=== PATIENT | male | born 1980 | race Caucasian/White ===

== ENCOUNTER 2020-06-16 03:13 | Inpatient (IN) ==
[2020-06-16] MEDS ORDERED: Nicotine PATCH 21 MG/24 HR PATCH TRANSDERM ONE (03:41)
[2020-06-16 06:06] LABS: Albumin 2.4 g/dL (3.2-5.2); Calcium 7.7 mg/dL (8.6-10.3); Potassium 3.6 mmol/L (3.5-5.0); Total Bilirubin 3.6 mg/dL (0.2-1.0)
[2020-06-16 06:07] LABS: ABS Basophils 0.1 10^3/ul (0-0.2); ABS Eosinophils 0.6 10^3/ul (0-0.6); ABS Lymphocytes 1.3 10^3/ul (1.0-4.8); ABS Monocytes 1.4 10^3/ul (0-0.8); Eosinophil % 3.1 %; Hematocrit 21 % (42-52); Hemoglobin 7.1 g/dL (14.0-18.0); Lymphocyte % 6.9 %; Mean Corpuscular HGB Conc 33 g/dL (31-36); Mean Corpuscular Hemoglobin 30 pg (27-31); Mean Corpuscular Volume 90 fL (80-94); Mean Platelet Volume 10.4 fL (7.4-10.4); Platelet Count 208 10^3/uL (150-450); Red Blood Count 2.38 10^6 /uL (4.18-5.48); Red Cell Distribution Width 19 % (10-15); White Blood Count 18.3 10^3/uL (3.5-10.8)
[2020-06-16 06:12] LABS: Albumin/Globulin Ratio 0.6 (1-3); BUN/Creatinine Ratio 7.1 (8-20); C Reactive Protein 35.59 mg/L (<8.01); EGFR African American 272.5 (>60); EGFR Non-African American 225.2 (>60); Globulin 3.7 g/dL (2-4); Total Protein 6.1 g/dL (6.4-8.9)
[2020-06-16] MEDS: Furosemide 40 mg/4 ml IV VIAL IV SCH (07:51)
[2020-06-16] MEDS: Nicotine PATCH 21 MG/24 HR PATCH TRANSDERM SCH (07:52)
[2020-06-16 08:44] LABS: INR 1.65 (0.82-1.09)
[2020-06-16 13:33] LABS: Body Fluid Source OTH
[2020-06-16 14:44] LABS: Body Fluid Mono 47 %; Body Fluid Other Cells 3
[2020-06-16] MEDS: cefTRIAXone 2 GM ADDV.VIAL 2 GM in NS 0.9% 100 ml BAG 100 ML IV SCH (20:32)
[2020-06-17 05:48] LABS: ABS Basophils 0.2 10^3/ul (0-0.2); ABS Eosinophils 0.5 10^3/ul (0-0.6); ABS Lymphocytes 1.2 10^3/ul (1.0-4.8); ABS Monocytes 1.2 10^3/ul (0-0.8); ABS Neutrophils 13.4 10^3/ul (1.5-7.7); Hematocrit 20 % (42-52); Hemoglobin 6.6 g/dL (14.0-18.0); Lymphocyte % 7.2 %; Mean Corpuscular HGB Conc 32 g/dL (31-36); Mean Corpuscular Hemoglobin 29 pg (27-31); Mean Corpuscular Volume 91 fL (80-94); Mean Platelet Volume 10.5 fL (7.4-10.4); Platelet Count 203 10^3/uL (150-450); Red Blood Count 2.23 10^6 /uL (4.18-5.48); Red Cell Distribution Width 18 % (10-15); White Blood Count 16.5 10^3/uL (3.5-10.8)
[2020-06-17 06:10] LABS: Calcium 7.7 mg/dL (8.6-10.3); EGFR African American 191.6 (>60); EGFR Non-African American 158.3 (>60); Potassium 3.5 mmol/L (3.5-5.0)
[2020-06-17] MEDS: Nicotine PATCH 21 MG/24 HR PATCH TRANSDERM SCH (10:18)
[2020-06-17] MEDS: Furosemide 40 mg/4 ml IV VIAL IV SCH (10:19)
[2020-06-17 13:41] LABS: Lactate Dehydrogenase, BF 81 U/L
[2020-06-17 13:57] LABS: Hematocrit 25 % (42-52)
[2020-06-17 15:47] LABS: Fluid Type, Protein, Total PARACENTESIS
[2020-06-17] MEDS: cefTRIAXone 2 GM ADDV.VIAL 2 GM in NS 0.9% 100 ml BAG 100 ML IV SCH (21:49)
[2020-06-18] MEDS: Senna TAB 8.6 mg TAB PO SCH ×2 (01:30→08:22)
[2020-06-18] MEDS: Docusate LIQ 100 MG/10 ML UDC PO SCH ×2 (01:31→08:23)
[2020-06-18] MEDS ORDERED: Senna/Docusate 8.6/50 mg (NF) TAB PO SCH (02:00)
[2020-06-18 04:43] LABS: Hematocrit 22 % (42-52); Mean Corpuscular HGB Conc 32 g/dL (31-36); Mean Corpuscular Hemoglobin 29 pg (27-31); Mean Corpuscular Volume 90 fL (80-94); Mean Platelet Volume 10.5 fL (7.4-10.4); Platelet Count 193 10^3/uL (150-450); Red Blood Count 2.42 10^6 /uL (4.18-5.48); Red Cell Distribution Width 18 % (10-15); White Blood Count 15.9 10^3/uL (3.5-10.8)
[2020-06-18 04:50] LABS: Calcium 7.7 mg/dL (8.6-10.3); Potassium 3.4 mmol/L (3.5-5.0)
[2020-06-18 04:55] LABS: BUN/Creatinine Ratio 7.7 (8-20)
[2020-06-18 05:14] LABS: ABS Basophils 0.6 10^3/ul (0-0.2); ABS Eosinophils 0.6 10^3/ul (0-0.6); ABS Lymphocytes 1.2 10^3/ul (1.0-4.8); ABS Monocytes 1.2 10^3/ul (0-0.8); ABS Neutrophils 12.3 10^3/ul (1.5-7.7); Eosinophil % 3.6 %; Lymphocyte % 7.5 %; Nucleated Red Blood Cells % 0.1
[2020-06-18] MEDS: Furosemide 40 mg/4 ml IV VIAL IV SCH (08:23)
[2020-06-18] MEDS: Nicotine PATCH 21 MG/24 HR PATCH TRANSDERM SCH (08:23)
[2020-06-18] MEDS ORDERED: Potassium Chlor 20 meq TAB.ER PO ONE (10:04)
[2020-06-18] MEDS ORDERED: Iohexol 300 (CONTRAST) 10 ML SDV IV ONE (10:21)
[2020-06-18] MEDS: cefTRIAXone 2 GM ADDV.VIAL 2 GM in NS 0.9% 100 ml BAG 100 ML IV SCH (20:39)
[2020-06-19 06:33] LABS: Hematocrit 22 % (42-52); Hemoglobin 7.3 g/dL (14.0-18.0); Mean Corpuscular HGB Conc 33 g/dL (31-36); Mean Corpuscular Hemoglobin 29 pg (27-31); Mean Corpuscular Volume 90 fL (80-94); Mean Platelet Volume 10.8 fL (7.4-10.4); Platelet Count 179 10^3/uL (150-450); Red Blood Count 2.48 10^6 /uL (4.18-5.48); Red Cell Distribution Width 18 % (10-15); White Blood Count 15.4 10^3/uL (3.5-10.8)
[2020-06-19 06:45] LABS: Albumin 2.4 g/dL (3.2-5.2); BUN/Creatinine Ratio 11.4 (8-20); Calcium 7.8 mg/dL (8.6-10.3); EGFR African American 258.3 (>60); EGFR Non-African American 213.4 (>60); Potassium 3.6 mmol/L (3.5-5.0); Total Protein 5.9 g/dL (6.4-8.9)
[2020-06-19 06:46] LABS: Albumin/Globulin Ratio 0.7 (1-3); Globulin 3.5 g/dL (2-4); Total Bilirubin 2.2 mg/dL (0.2-1.0)
[2020-06-19] MEDS: Docusate LIQ 100 MG/10 ML UDC PO SCH (10:47)
[2020-06-19] MEDS: Senna TAB 8.6 mg TAB PO SCH (10:47)
[2020-06-19] MEDS: Furosemide 40 mg/4 ml IV VIAL IV SCH (11:10)
[2020-06-19] MEDS: Nicotine PATCH 21 MG/24 HR PATCH TRANSDERM SCH (11:11)
[2020-06-19] MEDS ORDERED: Potassium Chlor 20 meq TAB.ER PO ONE (12:00)
[2020-06-19 19:03] LABS: Albumin, BF 0.6 g/dL; Fluid Type, Albumin PARACENTESIS
[2020-06-20] MEDS: Nicotine PATCH 21 MG/24 HR PATCH TRANSDERM SCH (08:48)
[2020-06-20] MEDS: Docusate LIQ 100 MG/10 ML UDC PO SCH (08:49)
[2020-06-20] MEDS: Senna TAB 8.6 mg TAB PO SCH (08:49)
[2020-06-20 09:07] LABS: Hematocrit 25 % (42-52); Hemoglobin 8.2 g/dL (14.0-18.0); Mean Corpuscular HGB Conc 33 g/dL (31-36); Mean Corpuscular Hemoglobin 30 pg (27-31); Mean Corpuscular Volume 90 fL (80-94); Mean Platelet Volume 10.4 fL (7.4-10.4); Platelet Count 186 10^3/uL (150-450); Red Blood Count 2.72 10^6 /uL (4.18-5.48); Red Cell Distribution Width 18 % (10-15); White Blood Count 17.3 10^3/uL (3.5-10.8)
[2020-06-20] MEDS ORDERED: Senna TAB 8.6 mg TAB PO PRN (11:07)
[2020-06-20] MEDS ORDERED: Magnesium Hydroxide LIQ 30 ML UDC PO PRN (11:07)
[2020-06-20 11:38] LABS: Anion Gap 7 mmol/L (2-11); CO2 Carbon Dioxide 23 mmol/L (22-32); Calcium 8.1 mg/dL (8.6-10.3); Chloride 104 mmol/L (101-111); Magnesium 1.8 mg/dL (1.9-2.7); Potassium 3.8 mmol/L (3.5-5.0); Sodium 134 mmol/L (135-145)
[2020-06-20 11:44] LABS: BUN/Creatinine Ratio 12.5 (8-20); Blood Urea Nitrogen 7 mg/dL (6-24); EGFR African American 195.5 (>60); EGFR Non-African American 161.6 (>60); Glucose 115 mg/dL (70-100)
[2020-06-20 11:58] LABS: Folate 11.68 ng/mL (>3.99)
[2020-06-20 11:59] LABS: Vitamin B12 727 pg/mL (180-914)
[2020-06-20 12:16] LABS: INR 1.72 (0.82-1.09)
[2020-06-20] MEDS ORDERED: Magnesium Sulfate IV 1GM/100ML 1 GM/100 ML BAG IV ONE (16:57)
[2020-06-20 18:40] LABS: Total Iron Binding Capacity 311 mcg/dL (250-450); Transferrin 222 mg/dL (203-362)
[2020-06-20 18:42] LABS: % Iron Saturation 6 % (15-55); Iron < 20 ug/dL (50-212); Unsaturated Iron Binding < 296 ug/dL
[2020-06-20 18:59] LABS: Ferritin 29.6 ng/mL (24-336)
[2020-06-21 06:23] LABS: Hematocrit 23 % (42-52); Hemoglobin 7.6 g/dL (14.0-18.0); Mean Corpuscular HGB Conc 33 g/dL (31-36); Mean Corpuscular Hemoglobin 29 pg (27-31); Mean Corpuscular Volume 89 fL (80-94); Mean Platelet Volume 10.7 fL (7.4-10.4); Platelet Count 179 10^3/uL (150-450); Red Blood Count 2.59 10^6 /uL (4.18-5.48); Red Cell Distribution Width 18 % (10-15); White Blood Count 20.5 10^3/uL (3.5-10.8)
[2020-06-21 06:40] LABS: BUN/Creatinine Ratio 18.2 (8-20); C Reactive Protein 21.48 mg/L (<8.01); Calcium 8.2 mg/dL (8.6-10.3); EGFR African American 199.6 (>60); Magnesium 1.8 mg/dL (1.9-2.7); Potassium 3.7 mmol/L (3.5-5.0)
[2020-06-21] MEDS: Nicotine PATCH 21 MG/24 HR PATCH TRANSDERM SCH (08:42)
[2020-06-21] MEDS ORDERED: Magnesium Sulfate IV 1GM/100ML 1 GM/100 ML BAG IV ONE (10:00)
[2020-06-21 10:54] LABS: ABS Basophils 0.3 10^3/ul (0-0.2); ABS Eosinophils 0.6 10^3/ul (0-0.6); ABS Lymphocytes 1.3 10^3/ul (1.0-4.8); ABS Monocytes 1.3 10^3/ul (0-0.8); Eosinophil % 2.8 %; Lymphocyte % 6.2 %
[2020-06-21 12:39] LABS: Urine Appearance Clear; Urine Bilirubin Negative (Negative); Urine Blood Negative (Negative); Urine Color Yellow; Urine Glucose Negative (Negative); Urine Ketones Negative (Negative); Urine Nitrite Negative (Negative); Urine Protein Negative (Negative); Urine Specific Gravity 1.011 (1.010-1.030); Urine Urobilinogen Negative (Negative)
[2020-06-21] MEDS ORDERED: Midazolam 10 mg/10 ml VIAL 1 mg/ml 10 ml VIAL (10 mg) ONE (13:23)
[2020-06-21] MEDS ORDERED: fentaNYL 100 mcg/2 ml 50 MCG/ML VIAL ONE (13:23)
[2020-06-22 05:50] LABS: ABS Basophils 0.3 10^3/ul (0-0.2); ABS Eosinophils 0.6 10^3/ul (0-0.6); ABS Lymphocytes 1.3 10^3/ul (1.0-4.8); ABS Monocytes 1.3 10^3/ul (0-0.8); ABS Neutrophils 18.1 10^3/ul (1.5-7.7); Hematocrit 23 % (42-52); Hemoglobin 7.7 g/dL (14.0-18.0); Lymphocyte % 5.8 %; Mean Corpuscular HGB Conc 33 g/dL (31-36); Mean Corpuscular Hemoglobin 30 pg (27-31); Mean Corpuscular Volume 89 fL (80-94); Mean Platelet Volume 10.4 fL (7.4-10.4); Platelet Count 177 10^3/uL (150-450); Red Blood Count 2.58 10^6 /uL (4.18-5.48); Red Cell Distribution Width 17 % (10-15); White Blood Count 21.6 10^3/uL (3.5-10.8)
[2020-06-22] MEDS: Nicotine PATCH 21 MG/24 HR PATCH TRANSDERM SCH (08:32)
[2020-06-22] MEDS ORDERED: PEG 3000 GI LAVAGE 1 GALLON PO ONE (14:52)
[2020-06-22 19:48] LABS: ABS Basophils 0.3 10^3/ul (0-0.2); ABS Eosinophils 0.5 10^3/ul (0-0.6); ABS Lymphocytes 1.3 10^3/ul (1.0-4.8); ABS Monocytes 1.4 10^3/ul (0-0.8); Eosinophil % 2.4 %; Hematocrit 23 % (42-52); Hemoglobin 7.7 g/dL (14.0-18.0); Lymphocyte % 6.1 %; Mean Corpuscular HGB Conc 34 g/dL (31-36); Mean Corpuscular Hemoglobin 30 pg (27-31); Mean Corpuscular Volume 89 fL (80-94); Mean Platelet Volume 10.6 fL (7.4-10.4); Platelet Count 186 10^3/uL (150-450); Red Blood Count 2.57 10^6 /uL (4.18-5.48); Red Cell Distribution Width 18 % (10-15); White Blood Count 21.6 10^3/uL (3.5-10.8)
[2020-06-23] MEDS: Nicotine PATCH 21 MG/24 HR PATCH TRANSDERM SCH (09:09)
[2020-06-23] MEDS ORDERED: fentaNYL 100 mcg/2 ml 50 MCG/ML VIAL ONE (13:54)
[2020-06-23] MEDS ORDERED: Midazolam 10 mg/10 ml VIAL 1 mg/ml 10 ml VIAL (10 mg) ONE (13:54)
[2020-06-23] MEDS ORDERED: Iron Sucrose 200 MG in NS 0.9% 100 ml BAG 100 ML IVPB SCH (18:00)
[2020-06-24 06:42] LABS: Hematocrit 23 % (42-52); Hemoglobin 7.4 g/dL (14.0-18.0); Mean Corpuscular HGB Conc 32 g/dL (31-36); Mean Corpuscular Hemoglobin 29 pg (27-31); Mean Corpuscular Volume 89 fL (80-94); Mean Platelet Volume 10.9 fL (7.4-10.4); Platelet Count 212 10^3/uL (150-450); Red Blood Count 2.56 10^6 /uL (4.18-5.48); Red Cell Distribution Width 18 % (10-15); White Blood Count 25.4 10^3/uL (3.5-10.8)
[2020-06-24 06:47] LABS: ABS Basophils 0.1 10^3/ul (0-0.2); ABS Eosinophils 0.6 10^3/ul (0-0.6); ABS Lymphocytes 1.1 10^3/ul (1.0-4.8); ABS Monocytes 1.9 10^3/ul (0-0.8); ABS Neutrophils 21.7 10^3/ul (1.5-7.7); Eosinophil % 2.2 %; Lymphocyte % 4.3 %
[2020-06-24] MEDS ORDERED: Iron Sucrose 200 MG in NS 0.9% 100 ml BAG 100 ML IVPB SCH (09:00)
[2020-06-24] MEDS: Nicotine PATCH 21 MG/24 HR PATCH TRANSDERM SCH (10:10)
[2020-06-24 11:28] VITALS: BP 94/44
[2020-06-29 12:18] LABS: BCR/ABL PCR Specimen EDTA WHOLE BLOOD; BCR/ABL p210 Result see interpretation
== END 2020-06-24 15:30 | disposition home or self-care (01) | DRG 710 ==
LOC: ED 03:13 → MEDTELE 05:03 → MED 06-23 01:18
PROVIDERS: ADMIT Internal Medicine; ATTEND Internal Medicine

== ENCOUNTER 2020-07-05 11:14 | Inpatient (IN) ==
[2020-07-05] MEDS ORDERED: Famotidine IV 10 MG/ML 2 ml VIAL (20 mg) IV SLOW PU ONE (11:31)
[2020-07-05] MEDS ORDERED: Pantoprazole VIAL 40 MG VIAL IV ONE (11:31)
[2020-07-05] MEDS ORDERED: Ondansetron 4 mg VIAL 2 MG/ML 2 ml VIAL IV ONE (11:31)
[2020-07-05] MEDS ORDERED: cefTRIAXone 1 gm/50 mL NS BAG 1 GM/50 ML BAG IV ONE (11:32)
[2020-07-05 11:51] LABS: ABS Eosinophils 0.6 10^3/ul (0-0.6); ABS Lymphocytes 1.2 10^3/ul (1.0-4.8); ABS Monocytes 1.7 10^3/ul (0-0.8); ABS Neutrophils 20.6 10^3/ul (1.5-7.7); Eosinophil % 2.4 %; Hematocrit 23 % (42-52); Hemoglobin 7.2 g/dL (14.0-18.0); Lymphocyte % 4.8 %; Mean Corpuscular HGB Conc 32 g/dL (31-36); Mean Corpuscular Hemoglobin 30 pg (27-31); Mean Corpuscular Volume 92 fL (80-94); Mean Platelet Volume 10.6 fL (7.4-10.4); Platelet Count 150 10^3/uL (150-450); Red Blood Count 2.43 10^6 /uL (4.18-5.48); Red Cell Distribution Width 24 % (10-15)
[2020-07-05 11:53] LABS: INR 1.84 (0.82-1.09)
[2020-07-05 12:52] LABS: ALT 9 U/L (7-52); AST 47 U/L (13-39); Albumin 2.7 g/dL (3.2-5.2); Albumin/Globulin Ratio 0.6 (1-3); Alkaline Phosphatase 286 U/L (34-104); Anion Gap 6 mmol/L (2-11); BUN/Creatinine Ratio 35.4 (8-20); Blood Urea Nitrogen 17 mg/dL (6-24); C Reactive Protein 34.91 mg/L (<8.01); CO2 Carbon Dioxide 26 mmol/L (22-32); Calcium 8.2 mg/dL (8.6-10.3); Chloride 102 mmol/L (101-111); EGFR African American 233.6 (>60); Globulin 4.3 g/dL (2-4); Glucose 128 mg/dL (70-100); Lipase < 10 U/L (11.0-82.0); Potassium 4.3 mmol/L (3.5-5.0); Sodium 134 mmol/L (135-145)
[2020-07-05 12:53] LABS: Alcohol, S < 10 mg/dL (<10)
[2020-07-05] MEDS ORDERED: Metoclopramide 5 MG/ML VIAL (10 mg) IV ONE (13:04)
[2020-07-05] MEDS ORDERED: NS 0.9% 1000 ml BAG 1,000 ML IV ONE (13:26)
[2020-07-05] MEDS ORDERED: Ondansetron 4 mg VIAL 2 MG/ML 2 ml VIAL IV PRN ×2 (14:14→17:45)
[2020-07-05] MEDS ORDERED: Morphine 2 MG/ML SYRINGE IV PRN (14:14)
[2020-07-05] MEDS ORDERED: NS 0.9% 1000 ml BAG 1,000 ML IV SCH (14:15)
[2020-07-05 14:43] LABS: Urine Appearance Clear; Urine Bilirubin Negative (Negative); Urine Blood Negative (Negative); Urine Color Amber; Urine Glucose Negative (Negative); Urine Ketones Negative (Negative); Urine Nitrite Negative (Negative); Urine Protein Negative (Negative); Urine Specific Gravity 1.018 (1.010-1.030); Urine Urobilinogen Positive (Negative)
[2020-07-05] MEDS: Nicotine PATCH 21 MG/24 HR PATCH TRANSDERM SCH (17:37)
[2020-07-05] MEDS ORDERED: Octreotide Acetate 100 mcg/ml 50 MCG in NS 0.9% 50 ML 50 ML IV ONE (19:27)
[2020-07-05] MEDS: Pantoprazole VIAL 40 MG VIAL IV SCH (20:31)
[2020-07-05] MEDS: Octreotide Acetate 500 MCG in NS 0.9% 100 ml BAG 100 ML IV SCH (21:43)
[2020-07-05 21:53] LABS: Hematocrit 21 % (42-52); Hemoglobin 6.9 g/dL (14.0-18.0)
[2020-07-06 07:56] LABS: ABS Basophils 0.2 10^3/ul (0-0.2); ABS Eosinophils 0.7 10^3/ul (0-0.6); ABS Lymphocytes 1.2 10^3/ul (1.0-4.8); ABS Neutrophils 14.2 10^3/ul (1.5-7.7); Eosinophil % 4.3 %; Hematocrit 23 % (42-52); Hemoglobin 7.5 g/dL (14.0-18.0); Mean Corpuscular HGB Conc 33 g/dL (31-36); Mean Corpuscular Hemoglobin 30 pg (27-31); Mean Corpuscular Volume 92 fL (80-94); Mean Platelet Volume 10.5 fL (7.4-10.4); Platelet Count 130 10^3/uL (150-450); Red Blood Count 2.47 10^6 /uL (4.18-5.48); Red Cell Distribution Width 22 % (10-15); White Blood Count 17.3 10^3/uL (3.5-10.8)
[2020-07-06] MEDS: Octreotide Acetate 500 MCG in NS 0.9% 100 ml BAG 100 ML IV SCH ×2 (07:59→17:37)
[2020-07-06 08:12] LABS: INR 1.68 (0.82-1.09)
[2020-07-06 08:13] LABS: Albumin 2.5 g/dL (3.2-5.2); Albumin/Globulin Ratio 0.6 (1-3); BUN/Creatinine Ratio 20.4 (8-20); EGFR African American 203.9 (>60); EGFR Non-African American 168.5 (>60); Globulin 4.2 g/dL (2-4); Total Bilirubin 2.1 mg/dL (0.2-1.0); Total Protein 6.7 g/dL (6.4-8.9)
[2020-07-06] MEDS: Pantoprazole VIAL 40 MG VIAL IV SCH (08:24)
[2020-07-06] MEDS: Nicotine PATCH 21 MG/24 HR PATCH TRANSDERM SCH (08:25)
[2020-07-06] MEDS ORDERED: cefTRIAXone 1 gm/50 mL NS BAG 1 GM/50 ML BAG IVPB SCH (11:30)
[2020-07-06 15:36] LABS: Hematocrit 24 % (42-52); Hemoglobin 7.9 g/dL (14.0-18.0); Mean Corpuscular HGB Conc 33 g/dL (31-36); Mean Corpuscular Hemoglobin 30 pg (27-31); Mean Corpuscular Volume 93 fL (80-94); Mean Platelet Volume 10.5 fL (7.4-10.4); Platelet Count 136 10^3/uL (150-450); Red Blood Count 2.59 10^6 /uL (4.18-5.48); Red Cell Distribution Width 21 % (10-15); White Blood Count 15.6 10^3/uL (3.5-10.8)
[2020-07-06 16:08] VITALS: BP 100/59
== END 2020-07-06 18:00 | disposition home or self-care (01) | DRG 253 ==
LOC: ED 11:14 → MED 14:14
PROVIDERS: ADMIT Internal Medicine; ATTEND Internal Medicine

== ENCOUNTER 2020-07-24 19:01 | Inpatient (IN) ==
[2020-07-24] MEDS ORDERED: Octreotide Acetate 50 MCG/ML ML IV SLOW PU ONE (19:16)
[2020-07-24] MEDS ORDERED: NS 0.9% 1000 ml BAG 1,000 ML IV ONE (19:18)
[2020-07-24] MEDS ORDERED: Pantoprazole 80 mg in NS BAG 80 MG/250 ML BAG IV ONE (19:18)
[2020-07-24 20:13] LABS: ABS Basophils 0.3 10^3/ul (0-0.2); ABS Eosinophils 0.6 10^3/ul (0-0.6); ABS Lymphocytes 2.7 10^3/ul (1.0-4.8); ABS Monocytes 1.8 10^3/ul (0-0.8); ABS Neutrophils 19.4 10^3/ul (1.5-7.7); Eosinophil % 2.4 %; Hematocrit 15 % (42-52); Hemoglobin 4.5 g/dL (14.0-18.0); Lymphocyte % 10.7 %; Mean Corpuscular HGB Conc 31 g/dL (31-36); Mean Corpuscular Hemoglobin 28 pg (27-31); Mean Corpuscular Volume 90 fL (80-94); Mean Platelet Volume 10.1 fL (7.4-10.4); Nucleated Red Blood Cells % 0.1; Platelet Count 227 10^3/uL (150-450); Red Blood Count 1.63 10^6 /uL (4.18-5.48); Red Cell Distribution Width 20 % (10-15); White Blood Count 24.8 10^3/uL (3.5-10.8)
[2020-07-24 20:17] LABS: INR 1.62 (0.82-1.09)
[2020-07-24] MEDS ORDERED: cefTRIAXone 1 gm/50 mL NS BAG 1 GM/50 ML BAG IV ONE (20:17)
[2020-07-24 20:19] LABS: ALT 8 U/L (7-52); AST 40 U/L (13-39); Albumin 2.6 g/dL (3.2-5.2); Albumin/Globulin Ratio 0.7 (1-3); Alkaline Phosphatase 193 U/L (34-104); BUN/Creatinine Ratio 31.8 (8-20); Blood Urea Nitrogen 14 mg/dL (6-24); CO2 Carbon Dioxide 21 mmol/L (22-32); Calcium 7.6 mg/dL (8.6-10.3); EGFR African American 258.3 (>60); EGFR Non-African American 213.4 (>60); Globulin 3.6 g/dL (2-4); Glucose 91 mg/dL (70-100); Potassium 3.6 mmol/L (3.5-5.0); Sodium 138 mmol/L (135-145); Total Protein 6.2 g/dL (6.4-8.9)
[2020-07-24 20:29] LABS: Polychromasia 2+
[2020-07-24 20:40] LABS: Anion Gap 12 mmol/L (2-11); Chloride 105 mmol/L (101-111)
[2020-07-24 22:11] LABS: Hematocrit for Retic CNT 14 % (42-52); RBC Retic Count 1.57 10^6/uL (4.18-5.48)
[2020-07-24 22:16] LABS: Corrected Retic Count 1.9 % (0.5-1.5); Immature Retic Fraction 0.55
[2020-07-24 22:43] LABS: % Iron Saturation 6 % (15-55); Iron < 20 ug/dL (50-212); LDH 96 U/L (140-271); Total Iron Binding Capacity 308 mcg/dL (250-450); Transferrin 220 mg/dL (203-362); Unsaturated Iron Binding < 293 ug/dL
[2020-07-24] MEDS: Ondansetron 4 mg VIAL 2 MG/ML 2 ml VIAL IV PRN (22:52)
[2020-07-24 23:41] LABS: C Reactive Protein 9.62 mg/L (<8.01); Magnesium 1.7 mg/dL (1.9-2.7)
[2020-07-24] MEDS: Nicotine PATCH 21 MG/24 HR PATCH TRANSDERM SCH (23:51)
[2020-07-25] MEDS ORDERED: Magnesium Sulfate 2 gm BAG 2 GM/50 ML BAG IVPB ONE (00:20)
[2020-07-25] MEDS: Octreotide Acetate 500 MCG in NS 0.9% 100 ml BAG 100 ML IV SCH ×3 (01:29→20:23)
[2020-07-25] MEDS: Pantoprazole 80 mg in NS BAG 80 MG/250 ML BAG IV SCH ×2 (05:19→14:12)
[2020-07-25 06:13] LABS: Albumin 2.1 g/dL (3.2-5.2); Albumin/Globulin Ratio 0.7 (1-3); Calcium 6.9 mg/dL (8.6-10.3); EGFR African American 233.6 (>60); Globulin 3.1 g/dL (2-4); Indirect Bilirubin 0.9 mg/dL (0.3-1.0); Total Bilirubin 1.4 mg/dL (0.2-1.0); Total Protein 5.2 g/dL (6.4-8.9)
[2020-07-25 07:05] LABS: Hematocrit 17 % (42-52); Hemoglobin 5.7 g/dL (14.0-18.0); Mean Corpuscular HGB Conc 33 g/dL (31-36); Mean Corpuscular Hemoglobin 28 pg (27-31); Mean Corpuscular Volume 83 fL (80-94); Platelet Count 128 10^3/uL (150-450); Red Blood Count 2.04 10^6 /uL (4.18-5.48); Red Cell Distribution Width 20 % (10-15)
[2020-07-25 07:06] LABS: ABS Basophils 0.1 10^3/ul (0-0.2); ABS Eosinophils 0.3 10^3/ul (0-0.6); ABS Lymphocytes 1.9 10^3/ul (1.0-4.8); ABS Monocytes 1.3 10^3/ul (0-0.8); ABS Neutrophils 9.4 10^3/ul (1.5-7.7); Eosinophil % 2.3 %; Lymphocyte % 14.6 %
[2020-07-25] MEDS: NS 0.9% 1000 ml BAG 1,000 ML IV SCH ×2 (07:35→21:17)
[2020-07-25] MEDS: Nicotine PATCH 21 MG/24 HR PATCH TRANSDERM SCH (07:39)
[2020-07-25] MEDS: Iron Sucrose 200 MG in NS 0.9% 100 ml BAG 100 ML IVPB SCH (10:27)
[2020-07-25 12:25] LABS: Hematocrit 19 % (42-52); Hemoglobin 6.5 g/dL (14.0-18.0); Mean Corpuscular HGB Conc 34 g/dL (31-36); Mean Corpuscular Hemoglobin 29 pg (27-31); Mean Corpuscular Volume 84 fL (80-94); Mean Platelet Volume 9.7 fL (7.4-10.4); Platelet Count 127 10^3/uL (150-450); Red Blood Count 2.26 10^6 /uL (4.18-5.48); Red Cell Distribution Width 20 % (10-15); White Blood Count 11.6 10^3/uL (3.5-10.8)
[2020-07-25] MEDS ORDERED: Midazolam 10 mg/10 ml VIAL 1 mg/ml 10 ml VIAL (10 mg) ONE (14:14)
[2020-07-25] MEDS ORDERED: fentaNYL 100 mcg/2 ml 50 MCG/ML VIAL ONE (14:14)
[2020-07-25] MEDS: Pantoprazole VIAL 40 MG VIAL IV SCH (17:23)
[2020-07-25] MEDS: Ondansetron 4 mg VIAL 2 MG/ML 2 ml VIAL IV PRN (18:16)
[2020-07-25 19:30] LABS: ABS Basophils 0.1 10^3/ul (0-0.2); ABS Eosinophils 0.4 10^3/ul (0-0.6); ABS Lymphocytes 1.2 10^3/ul (1.0-4.8); ABS Monocytes 0.8 10^3/ul (0-0.8); ABS Neutrophils 7.5 10^3/ul (1.5-7.7); Eosinophil % 4.4 %; Hematocrit 21 % (42-52); Hemoglobin 7.3 g/dL (14.0-18.0); Mean Corpuscular HGB Conc 34 g/dL (31-36); Mean Corpuscular Hemoglobin 28 pg (27-31); Mean Corpuscular Volume 84 fL (80-94); Mean Platelet Volume 9.6 fL (7.4-10.4); Nucleated Red Blood Cells % 0.1; Platelet Count 127 10^3/uL (150-450); Red Blood Count 2.56 10^6 /uL (4.18-5.48); Red Cell Distribution Width 19 % (10-15); White Blood Count 10.1 10^3/uL (3.5-10.8)
[2020-07-25] MEDS ORDERED: cefTRIAXone 1 gm/50 mL NS BAG 1 GM/50 ML BAG IVPB SCH (20:00)
[2020-07-25 20:33] LABS: Urine Appearance Clear; Urine Bilirubin Negative (Negative); Urine Blood Negative (Negative); Urine Color Yellow; Urine Glucose Negative (Negative); Urine Ketones Negative (Negative); Urine Nitrite Negative (Negative); Urine Protein Negative (Negative); Urine Specific Gravity 1.011 (1.010-1.030); Urine Urobilinogen Negative (Negative)
[2020-07-26 01:07] LABS: ABS Basophils 0.1 10^3/ul (0-0.2); ABS Eosinophils 0.6 10^3/ul (0-0.6); ABS Lymphocytes 1.2 10^3/ul (1.0-4.8); ABS Monocytes 0.9 10^3/ul (0-0.8); ABS Neutrophils 7.3 10^3/ul (1.5-7.7); Eosinophil % 5.9 %; Hematocrit 22 % (42-52); Hemoglobin 7.3 g/dL (14.0-18.0); Lymphocyte % 11.9 %; Mean Corpuscular HGB Conc 33 g/dL (31-36); Mean Corpuscular Hemoglobin 28 pg (27-31); Mean Corpuscular Volume 84 fL (80-94); Mean Platelet Volume 9.5 fL (7.4-10.4); Nucleated Red Blood Cells % 0.1; Platelet Count 125 10^3/uL (150-450); Red Blood Count 2.62 10^6 /uL (4.18-5.48); Red Cell Distribution Width 20 % (10-15); White Blood Count 10.2 10^3/uL (3.5-10.8)
[2020-07-26] MEDS: Octreotide Acetate 500 MCG in NS 0.9% 100 ml BAG 100 ML IV SCH (06:27)
[2020-07-26] MEDS: Pantoprazole VIAL 40 MG VIAL IV SCH ×2 (06:34→18:19)
[2020-07-26] MEDS: NS 0.9% 1000 ml BAG 1,000 ML IV SCH (06:40)
[2020-07-26 07:09] LABS: BUN/Creatinine Ratio 14.3 (8-20); Calcium 7.7 mg/dL (8.6-10.3); EGFR African American 228.1 (>60); EGFR Non-African American 188.5 (>60); Potassium 3.8 mmol/L (3.5-5.0)
[2020-07-26 07:27] LABS: ABS Basophils 0.1 10^3/ul (0-0.2); ABS Eosinophils 0.6 10^3/ul (0-0.6); ABS Lymphocytes 1.1 10^3/ul (1.0-4.8); ABS Monocytes 0.8 10^3/ul (0-0.8); Eosinophil % 5.8 %; Hematocrit 21 % (42-52); Hemoglobin 7.2 g/dL (14.0-18.0); Lymphocyte % 11.5 %; Mean Corpuscular HGB Conc 34 g/dL (31-36); Mean Corpuscular Hemoglobin 29 pg (27-31); Mean Corpuscular Volume 85 fL (80-94); Nucleated Red Blood Cells % 0.1; Platelet Count 119 10^3/uL (150-450); Red Cell Distribution Width 20 % (10-15); White Blood Count 9.6 10^3/uL (3.5-10.8)
[2020-07-26] MEDS: Nicotine PATCH 21 MG/24 HR PATCH TRANSDERM SCH (09:30)
[2020-07-26] MEDS: Iron Sucrose 200 MG in NS 0.9% 100 ml BAG 100 ML IVPB SCH (09:30)
[2020-07-27] MEDS: Octreotide Acetate 500 MCG in NS 0.9% 100 ml BAG 100 ML IV SCH ×2 (03:48→05:30)
[2020-07-27] MEDS: Pantoprazole VIAL 40 MG VIAL IV SCH (05:30)
[2020-07-27 05:42] LABS: Hematocrit 22 % (42-52); Hemoglobin 7.3 g/dL (14.0-18.0); Mean Corpuscular HGB Conc 34 g/dL (31-36); Mean Corpuscular Hemoglobin 29 pg (27-31); Mean Corpuscular Volume 86 fL (80-94); Mean Platelet Volume 9.9 fL (7.4-10.4); Platelet Count 126 10^3/uL (150-450); Red Blood Count 2.55 10^6 /uL (4.18-5.48); Red Cell Distribution Width 20 % (10-15); White Blood Count 11.5 10^3/uL (3.5-10.8)
[2020-07-27 05:58] LABS: BUN/Creatinine Ratio 7.8 (8-20); Calcium 8.1 mg/dL (8.6-10.3); EGFR African American 167.6 (>60); EGFR Non-African American 138.5 (>60); Potassium 3.6 mmol/L (3.5-5.0)
[2020-07-27] MEDS: Nicotine PATCH 21 MG/24 HR PATCH TRANSDERM SCH (08:02)
[2020-07-27] MEDS: Iron Sucrose 200 MG in NS 0.9% 100 ml BAG 100 ML IVPB SCH (08:18)
[2020-07-27 11:32] VITALS: BP 110/61
== END 2020-07-27 12:40 | disposition left against medical advice (07) | DRG 242 ==
LOC: ED 19:01 → ICU 20:31 → MED 07-26 12:57
PROVIDERS: ADMIT Internal Medicine; ATTEND Internal Medicine